=== PATIENT | female | born 1945 | race Caucasian/White ===

== ENCOUNTER → 2016-10-04 | Outpatient (CLI) | payer MEDICARE, BC ==
[~2016-10-04] MED LIST: AMIODARONE HCL200 MG PO; ASPIRIN81 M2 PO; ATENOLOL PO; B COMPLEX1 TAB.S1 PO; CO Q-10300 MG PO; ELIQUIS5 MG; ELIQUIS5 MG PO; FISH OIL 1,2001 CAP PO; IBUPROFEN800 MG PO; LOSARTAN-HCTZ1 EAC1 PO; MAGNESIUM400 MG PO; METFORMIN HCL500 M2 PO; METFORMIN HCL500 M3 PO; OSTEO BI-FLEX1 EAC1 PO; PRAVACHOL20 MG PO; PRAVASTATIN SOD40 MG PO; SOTALOL AF80 MG PO; SOTALOL160 MG PO; VITAMIN C500 MG PO; VITAMIN D400 UNI1 PO; VITAMIN D400 UNI2 PO
--- NOTE | ~2016-10-04 | BD1 ---
[facility] RADIOLOGY TEXT RESULTS PATIENT: SHAKEEL ZHOU LOCATION: [facility] : 41 UNIT #: [id number] AGE: [address]: Rob Laurent MD SEX: F ORDER DR: [id number] [facility] [address] [place], [place] [address] [id number] O MR#: [id number] Acc #: [id number] NAME: SHAKEEL ZHOU : 1945 SEX: F STUDY DATE/TIME: 10/04/2016 13:17 UNIT: [facility] ROOM: STUDY DESCRIPTION: BD Dexa Bone Dens 1+ Site Attending Physician: Rob Laurent M.D. Referring Physician: Rob Laurent M.D. Ordering Physician: Rob Laurent M.D. Primary Care Physician: Rob Laurent M.D. MEDICAL IMAGING REPORT This report is preliminary unless electronic signature is present EXAM DXA scan HISTORY Postmenopausal screening for osteoporosis. COMPARISON DXA scan 03/21/2014 FINDINGS Bone density is assessed utilizing a logic bone densitometer. Total bone density within the lumbar spine was calculated at 1.109 g/cm2 with a T score of 0.6. Bone density within the left femoral neck was calculated at 0.566 g/cm2 with a T score -2.5. When compared to the March 2014 study, there has been no statistically significant change in bone density. IMPRESSION Bone density within the left femoral neck is 2.5 standard deviations below the mean and based on World Health Organization criteria would be compatible with the criteria for osteoporosis. Though there has not been a statistically significant change in overall bone density, the slight decrease in bone dense in the left femoral neck does move the patient from the category of osteopenia to osteoporosis. Dictated by... Darrin Lin M.D. THIS IS AN ELECTRONICALLY VERIFIED REPORT Darrin Lin M.D. at 10/08/2016 10:16 AM FOX/mike [facility] A [facility] RADIOLOGY TEXT RESULTS PATIENT: SHAKEEL ZHOU LOCATION: [facility] #: [id number] : 41 UNIT #: [id number] AGE: [address]: Rob Laurent MD SEX: F ORDER DR: TD: 10/04/2016 20:26 JOB #: [id number] MEDICAL IMAGING REPORT Page 1 of 1 COPY
--- NOTE | ~2016-10-04 | MY29 ---
[facility] A [facility] RADIOLOGY TEXT RESULTS PATIENT: SHAKEEL ZHOU LOCATION: [facility] : 43 UNIT #: [id number] AGE: [address]: Rob Laurent MD SEX: F ORDER DR: [id number] [facility] [address] [place], [place] [address] [id number] O MR#: [id number] Acc #: [id number] NAME: SHAKEEL ZHOU : 1945 SEX: F STUDY DATE/TIME: 10/04/2016 13:33 UNIT: [facility] ROOM: STUDY DESCRIPTION: MY YUMIKO SCREENING W/ CAD BILAT Attending Physician: Rob Laurent M.D. Referring Physician: Rob Laurent M.D. Ordering Physician: Rob Laurent M.D. Primary Care Physician: Rob Laurent M.D. MEDICAL IMAGING REPORT This report is preliminary unless electronic signature is present EXAM Digital screening mammogram 10/04/2016. HISTORY A 71-year-old woman no risk elevation. Annual screening FINDINGS Digital imaging of each breast was completed utilizing a two-view examination of each breast in craniocaudal and mediolateral-oblique projections. Review and interpretation of digital mammograms include a second review in conjunction with FDA-approved CAD device. There is a normal parenchymal presentation bilaterally consistent with the patient's age. There are no breast masses imaged and no parenchymal asymmetry is visualized. There are no suspicious microcalcifications and I see no focal architectural disturbance. IMPRESSION Negative screening digital mammogram. One-year followup recommended. Patients over the age of 40 are entered into a reminder system with target due date for the next mammogram. A result letter will also be sent to the patient. BIRADS: 1 Negative ADDENDUM Breast parenchyma is fatty replaced Dictated by... Wm Portillo M.D. THIS IS AN ELECTRONICALLY VERIFIED REPORT [facility] A Service [facility] RADIOLOGY TEXT RESULTS PATIENT: SHAKEEL ZHOU [id number] 41 UNIT #: [id number] AGE: [address]: Rob Laurent MD SEX: F ORDER DR: Wm Portillo M.D. at 10/07/2016 8:08 AM Lou TD: 10/04/2016 19:20 JOB #: [id number] MEDICAL IMAGING REPORT Page 1 of 1 COPY
== END | disposition home or self-care (01) ==
LOC: CWCC 12:56
DX: Z12.31 Encounter for screening mammogram for malignant neoplasm of breast (principal); M85.80 Other specified disorders of bone density and structure, unspecified site; M81.0 Age-related osteoporosis without current pathological fracture
CPT/HCPCS: 77080; G0202

== ENCOUNTER → 2016-10-22 | Outpatient (CLI) | payer MEDICARE, BC | END | disposition home or self-care (01) | LOC: CSSDAY 07:00 | DX: M81.0 Age-related osteoporosis without current pathological fracture (principal); Z79.899 Other long term (current) drug therapy | CPT/HCPCS: 96372; J0897 ==